=== PATIENT | female | born 1950 | race Caucasian/White ===

== ENCOUNTER 2016-10-23 08:51 | Day surgery (SDC) | payer MEDICARE ==
[2016-10-23] MEDS ORDERED: CEFAZOLIN 1 GM VIAL ONE (10:01)
[2016-10-23] MEDS ORDERED: FENTANYL 250 MCG/5 ML VIAL IV ONE (10:34)
[2016-10-23] MEDS ORDERED: hydrALAZINE 20 MG/ML VIAL IM ONE (10:34)
[2016-10-23] MEDS ORDERED: MIDAZOLAM 2 MG/2 ML VIAL IV ONE (10:34)
[2016-10-23] MEDS ORDERED: GLYCOPYRROLATE 1 MG VIAL IM ONE (10:34)
[2016-10-23] MEDS ORDERED: PROPOFOL 200 MG/20 ML VIAL IV ONE (10:34)
[2016-10-23] MEDS ORDERED: DEXAMETHASONE 4 MG/ML VIAL IV ONE (10:34)
[2016-10-23] MEDS ORDERED: ONDANSETRON HCL 4 MG/2 ML VIAL IV ONE (10:34)
[2016-10-23] MEDS ORDERED: NEOSTIGMINE 1 MG/1 ML (1:1000) INJ 10 ML MDV IM ONE (10:34)
[2016-10-23] MEDS ORDERED: ROCURONIUM 50 MG/5 ML VIAL IV ONE (10:34)
[2016-10-23] MEDS ORDERED: PHENYLEPHRINE 10 MG/ML VIAL IC ONE (10:34)
--- NOTE | 2016-10-23 11:17 | HIM.ANES ---
Anesthesia Evaluation & Plan Diagnoses: UNSP FRACTURE OF UPPER END OF RIGHT HUMERUS, INIT (10/23/16) Consented Procedure: OPEN REDUCTION INTERNAL FIXATION OF THE RIGHT PROXIMAL HUMERUS FRACTURE AND OTHER PROCEDURES INDICATED - Focused Review of Systems Now: No Cardiac History: Yes: Hx Hypertension (TAKES MEDICINE), Hx Cardiac Disorders, Hx Abnormal Cholesterol/Hyperlipidemia (TAKES PRAVASTATIN) No: Hx Angina, Hx Heart Attack, Hx Cardiac Catheterization, Hx Angioplasty, Hx Coronary Stent, Hx Pacemaker, Hx Internal Defibrillator, Hx Heart Murmur, Hx Cardia Arrhythmia, Hx Afib/Aflutter, Hx Abdominal Aortic Aneurysm, Hx Aneurysm, Hx Cardiomegaly, Hx Congestive Heart Failure, Hx Coronary Artery Bypass Graft, Hx Deep Vein Thrombosis, Hx of SVT HEENT: Yes: Cataracts, Macular Degeneration (LEFT EYE TAKES INJECTIONS), Temporomandibular Joint Disease (TMJ), Hx Vision Problem (WEARS GLASSES), Other HEENT Problems No: Hx Hearing Impairment, Cataract Removal, Glaucoma, Hx Dysphagia, Hx Ear Problem Hx Other HEENT Surgery: laser surgery left eye, tonsillectomy Hx Other HEENT Problems: seasonal allergies Respiratory: Yes: Hx Chronic Obstructive Pulmonary Disease (COPD) (PULMONARY FIBROSIS), Hx Snoring No: Hx Asthma, Hx Emphysema, Hx Sleep Apnea, Patient at risk for Sleep apnea (Based on RAMON tool), Hx Home O2, Hx BiPAP Dependent, Hx CPAP Dependent, Hx Recent Cold/Flu (SINUS), Hx Pneumonia Gastrointestinal: Yes: Hx Gastroesophageal Reflux Disease (REFLUX), Hx Gastrointestinal Disorders, Hx Chronic Constipation, Hx Colonoscopy (2016), Hx Endoscopy, Hx Esophageal Dilatation No: Hx Pancreatitis, Hx Obstructive Bowel, Hx Colitis, Hx Diverticulitis, Hx Diverticulosis, Hx Liver Disease, Hx Endoscopic Retrograde Cholangio Genitourinary: No: Hx Renal Disease, Hx Renal Failure, Hx Dialysis Neurological/Musculoskeletal: Yes: Hx Syncope (LAST EPISODE OVER 6 MONTHS AGO), Hx Migraine (ASSOCIATED WITH SINUS ISSUES), Hx Back Pain, Hx Numbness, Tingling , Weakness in Arms & Legs (NUMBNESS IN FINGERS AND TOES), Hx Neurological Disorders No: HX Cerebrovascular Accident, Hx Transient Ischemic Attacks (TIA), Hx Alzheimer's Disease, Hx Dementia, Hx Confusion, Hx Seizures, Hx Head Trauma Physiological: Yes Hx Anxiety, Yes Hx Depression (VENLAFAXINE), Yes Hx Mental/ Emotional Disorders, No Hx Bipolar Disorder Endocrine: No: Hx Diet Controlled Diabetes, Hx Non-Insulin Dependent Diabetes, Hx Insulin Dependent Diabetes, Hx Hyperthyroidism, Hx Hypothyroidism Blood/Autoimmune: Yes: Hx Anemia (4-5 MONTHS AGO) No: Hx Blood Transfusions, Hx AIDS, Hx Hepatitis (type) Smoking Status: Never smoker Hx Stress Test (date): No Hx Echocardiogram (date): Yes (2015) Hx Chest Xray (date): Yes (2015) Surgical History: No: Ablation, Carotid Endarterectomy, CABG, Bladder Tact, Ureter Stent, TURP , TURB, Back, Hip, Knee Other Surgical History: laser surgery left eye, tonsillectomy partial hysterectomy - Focused Physical Exam NPO since: 10/22/16 1900 Mallampati: Class II Thyromental Distance: Greater than 3 Neck: Limited Range of Motion Dental: Normal - no significant findings Cardiovascular/Chest: Normal (RRR no mumurs or rubs.) Respiratory: Lungs clear. negative: Rhonchi, Wheezing Any problems with anesthesia, including nausea and vomiting?: No Any relatives with a history of Malignant Hyperthermia?: No Does patient have a history of Malignant Hyperthermia?: No Beta Marilyn given (if appropriate): No Does the patient have a history of Motion Sickness-: No Other: Problem List Problem Status Onset Closed fracture of right proximal humerus Acute Allergies Allergy/AdvReac Type Severity Reaction Status Date / Time aspirin Allergy Unknown Verified 10/23/16 09:12 Home Medications Medication Instructions Recorded Last Taken Type Bisoprolol Fumarate 5 mg PO DAILY 06/04/16 10/22/16 08:00 History Calcium Carbonate/Vitamin D3 1 each PO .LUNCH AND SUPPER 06/04/16 10/22/16 17: 00 History [Calcium 600 + Vit D Softgel] Famotidine [Pepcid] 20 mg PO HS 06/04/16 10/22/16 19:00 History Guar Gum [Fiber] 1 gm PO DAILY 06/04/16 10/22/16 08:00 History Multivitamin [Multivitamins] 1 cap PO DAILY 06/04/16 10/22/16 08:00 History Pravastatin [Pravachol] 40 mg PO HS 06/04/16 10/22/16 19:00 History Trazodone HCl [Desyrel] 50 - 100 mg PO QHS 06/04/16 10/22/16 19:00 History Triamterene/Hydrochlorothiazid 1 cap PO DAILY 06/04/16 10/22/16 08:00 History [Triamterene-Hctz 37.5-25 mg Cp] Polyvinyl Alcohol/Povidone/Pf 1 drop OU Q2H PRN 06/05/16 10/22/16 History [Refresh Eye Drops] Acetaminophen [Tylenol 8 650 mg PO QHS PRN 10/11/16 Unknown History Hour/Tylenol Arthritis] Ascorbic Acid [Vitamin C] 1,000 mg PO DAILY 10/11/16 1 Week Ago History Dextromethorphan HBr/Chlor-Mal 2 tab PO QHS 10/11/16 10/22/16 19:00 History [Coricidin Hbp Cough/Cold Tab (30mg/4mg)] Echinacea 400 mg PO DAILY 10/11/16 1 Week Ago History Levothyroxine Sodium 50 mcg PO DAILY 10/11/16 10/22/16 08:00 History Oxycodone Immediate Release 5 mg PO Q6H PRN #30 tab 10/11/16 10/23/16 06:00 Rx [Oxy-Ir] Tramadol HCl [Ultram] 50 - 100 mg PO BID PRN 10/11/16 10/11/16 History Lansoprazole [Prevacid] 30 mg PO QAM 10/20/16 10/22/16 08:00 History Venlafaxine HCl [Effexor Xr] 75 mg PO DAILY 10/20/16 10/22/16 08:00 History Venlafaxine HCl [Effexor Xr] 150 mg PO DAILY 10/20/16 10/22/16 08:00 History Height and Weight Patient's height 5 ft 3 in Patient's weight 62.596 kg BMI 25.2 Vital Signs Temperature 99.1 F 10/23/16 09:18 Pulse Rate 99 10/23/16 09:18 Respiratory Rate 18 10/23/16 09:18 Blood Pressure 138/71 10/23/16 09:18 Pulse Oxygen Saturation 96 10/23/16 09:18 METS - Level of Activity: Eating, Dressing, walking around house, dishwashing - Anesthetic Plan Anesthesia Type: General, Post-Op Block- for Pain Control ASA Class: 3 -: I have examined this patient and reviewed the medical record. The patient has been assessed prior to anesthesia. Risks and benefits of anesthesia and anesthetic technique options have been discussed and all questions answered. The patient accepts the risk and desires me to proceed with the planned anesthetic.
[2016-10-23] MEDS ORDERED: ONDANSETRON HCL 4 MG/2 ML VIAL IV PRN ×2 (11:21→14:35)
[2016-10-23] MEDS ORDERED: hydrALAZINE 20 MG/ML VIAL IV PRN (11:21)
[2016-10-23] MEDS ORDERED: LABETALOL 20 MG/4 ML SYRINGE IV PRN (11:21)
[2016-10-23] MEDS ORDERED: ONDANSETRON HCL 4 MG ODT TAB PO PRN (11:21)
[2016-10-23] MEDS ORDERED: HYDROmorphone 1 MG INJECTION IV PRN ×2 (11:21)
[2016-10-23] MEDS ORDERED: MEPERIDINE 25 MG/ML TUBEX IV PRN (11:21)
[2016-10-23] MEDS ORDERED: FENTANYL 100 MCG/2 ML VIAL IV PRN ×2 (11:21)
[2016-10-23] MEDS ORDERED: FENTANYL 100 MCG/2 ML VIAL ONE (11:25)
[2016-10-23] MEDS ORDERED: MIDAZOLAM 2 MG/2 ML VIAL ONE (11:25)
[2016-10-23] MEDS ORDERED: ROPIVACAINE HCL 20 ML ONE (11:27)
[2016-10-23] MEDS ORDERED: LIDOCAINE 1% 5 ML (METHYLPARABEN FREE) ONE (11:27)
--- NOTE | 2016-10-23 12:07 | HIM.ANESP ---
Procedure Note DATE OF PROCEDURE: 10/23/16 PREOPERATIVE DIAGNOSIS: Post-operative Pain Control. POSTOPERATIVE DIAGNOSIS: Same PROCEDURE: Brachial Plexus Block at interscalene PERFORMING PROVIDER: Barbra Hodges MD TIME OUT: 1149 BLOCK START Time: 1149 BLOCK STOP Time: 1154 MEDICATIONS: Ropivacaine 0.2% 20 ml EPINEPHRINE 1:200,000 SEDATION: Fentanyl 150 mcg; versed 2 mg NEEDLE: Stimuplex 22G 50MM STERILE BARRIERS: Cap, mask, sterile gloves. COMPLICATIONS: None. BLOOD LOSS: 0 cubic centimeters. PROCEDURE FINDINGS AND TECHNIQUE:At the request of the Operative Surgeon and patient, a Brachial Plexus Block was performed for post-operative pain relief. Risk, benefits and alternatives of the procedure were explained. Informed consent was obtained and surgical site confirmed with patient and chart. Time out was performed. Pulse oximetry, EKG and BP monitoring were established.. The Right neck was prepped and draped in a sterile manner. Skin anesthesia was obtained with 1% Xylocaine infiltration. The Brachial plexus was visualized by ultrasound and an image is appended. (see chart) An Stimuplex needle was inserted in the proximity of the nerves. Under direct visualization local anesthetic was injected in incremental volumes of 5 ml with negative aspirations throughout. There was no pain on injection. A peripheral nerve stimulator was used to assist in localizing the brachial plexus. Appropriate paresthesia and/or muscle response was noted at 0.5mA current. No muscle response noted at 2mA or less. Patient tolerated the procedure well without complications and the case was continued under general anesthesia as was the request of the patient.
[2016-10-23] MEDS ORDERED: TRANEXAMIC ACID 1,000 MG in NS 100 ML IV ONE (13:00)
[2016-10-23] MEDS ORDERED: DIPHENHYDRAMINE 50 MG/ML VIAL IV PRN (14:35)
[2016-10-23] MEDS ORDERED: PROMETHAZINE 25 MG/ML VIAL IV PRN (14:35)
[2016-10-23] MEDS ORDERED: DIPHENHYDRAMINE 25 MG CAP PO PRN (14:35)
[2016-10-23] MEDS ORDERED: Aluminum;Magnesium;Simethicone 30 ML UDC PO PRN (14:35)
[2016-10-23] MEDS ORDERED: MAGNESIUM HYDROXIDE 30 ML BOTTLE PO PRN (14:35)
[2016-10-23] MEDS ORDERED: ACETAMINOPHEN 325 MG/TAB TABLET PO PRN (14:35)
--- NOTE | 2016-10-23 14:52 | SC.ANESPOS ---
Post-Anesthesia Note LOC: Fully Awake Post-Anesthesia Assessment: Awake, Returned to Baseline, Hemodynamically Stable , Pain Control Adequate Phase I & II Recovery Complete: Yes Apparent Anesthesia Complication: No : N - Vital Signs Blood Pressure: 119/56 Pulse: 104 Resp Rate: 18 O2 Sat: 97 Temp: 97.7 F
--- NOTE | 2016-10-23 14:53 | DIRPT ---
CLINICAL DATA: Right proximal humeral fracture operative reduction and internal fixation. EXAM: PORTABLE RIGHT SHOULDER - 2+ VIEW COMPARISON: 10/11/2016 FINDINGS: Proximal humeral locking plate fixator observed with expected configuration of screws in the humeral head and proximal shaft, traversing the previously displaced surgical neck fracture, with restorationist of near-anatomic alignment without a complicating feature visualized. Airspace opacity at the right lung base and peripherally in the right lung, favoring atelectasis. IMPRESSION: 1. Proximal humeral locking plate and screw fixator is in place without complicating feature, with restorationist of near-anatomic alignment and positioning at the site of the surgical neck fracture. 2. Suspected atelectasis at the right lung base. Electronically Signed By: Mauro Montez M.D. On: 10/23/2016 14:51
[2016-10-23] MEDS ORDERED: NALOXONE 0.4 MG/ML AMPULE IV SCH ×2 (15:00)
[2016-10-23] MEDS ORDERED: Vaccine Screening Complete SCH (15:00)
[2016-10-23 15:15] VITALS: BMI 25.4
[2016-10-23] MEDS: NS 1,000 ML IV SCH ×2 (15:31→21:40)
[2016-10-23] MEDS ORDERED: TRAMADOL HCL 50 MG TAB PO PRN (16:13)
[2016-10-23] MEDS: PANTOPRAZOLE 40 MG TAB PO SCH (17:24)
[2016-10-23] MEDS: SODIUM CHLORIDE 0.9% 3 ML FLUSH FLUSH SCH ×2 (17:24)
[2016-10-23] MEDS: ACETAMINOPHEN 325 MG/TAB TABLET PO SCH (17:24)
[2016-10-23] MEDS: HYDROmorphone 1 MG INJECTION IV PRN ×2 (17:28→21:40)
[2016-10-23] MEDS ORDERED: CALCIUM CARBONATE + VITAMIN D 500 MG TAB PO SCH (18:00)
[2016-10-23] MEDS: Cefazolin 2gm/50 ml D5W 2 GM/50 ML RTU IV SCH (18:16)
[2016-10-23] MEDS: OXYCODONE HCL 5 MG TABLET PO PRN (20:14)
[2016-10-23] MEDS ORDERED: TRAZODONE 100 MG TAB PO SCH (21:00)
[2016-10-23] MEDS ORDERED: Docusate Sodium 100 MG CAP PO SCH (21:00)
[2016-10-23] MEDS ORDERED: TRAZODONE 50 MG TAB PO SCH (21:00)
[2016-10-23] MEDS ORDERED: PRAVASTATIN 40 MG TABLET PO SCH (21:00)
[2016-10-24] MEDS: OXYCODONE HCL 5 MG TABLET PO PRN ×2 (00:38→05:55)
[2016-10-24] MEDS: Cefazolin 2gm/50 ml D5W 2 GM/50 ML RTU IV SCH ×2 (00:38→09:13)
[2016-10-24] MEDS: ACETAMINOPHEN 325 MG/TAB TABLET PO SCH ×2 (00:38→05:55)
[2016-10-24] MEDS: HYDROmorphone 1 MG INJECTION IV PRN (02:28)
[2016-10-24] MEDS: SODIUM CHLORIDE 0.9% 3 ML FLUSH FLUSH SCH ×2 (05:49→05:50)
[2016-10-24] MEDS: PANTOPRAZOLE 40 MG TAB PO SCH (05:56)
[2016-10-24 06:29] VITALS: BP 131/68; PULSE 116; TEMP 98.3
--- NOTE | 2016-10-24 06:45 | PCM.ORTHBL ---
- Subjective Hospital Day #: 2 Post Op Day: 1 (s/p R proximal humerus ORIF) Daily Assessment - Patient: Reports: No new complaints, Awake Alert Oriented x4 , Still having pain, Tolerating Regular Diet, Afebrile, Ambulating with Physical Therapist - Objective / Physical Exam Vital Signs: Temperature: 98.3 F (10/24/16 06:00) HR: 116 (10/24/16 06:00)RR: 18 (10/24/16 06 :00) BP: 131/68 (10/24/16 06:00)Pulse Ox: 96 (10/24/16 06:00) General: Alert, Oriented x3, Cooperative, No acute distress Musculoskeletal / Extremities: 2 plus Radial Pulse, Dressing Clean/Dry/Intact Neurological: Other (SITLT RUE) Skin: Warm,Dry and Intact, Other (pre op ecchymosis along inner upper right arm) - Assessment and Plan (1) Closed fracture of right proximal humerus Acute S42.201A - UNSP FRACTURE OF UPPER END OF RIGHT HUMERUS, INIT Present on Admission: Yes subsequent encounter displaced Comment/Plan: POD #1 s/p Right proximal humerus ORIF doing well. NWB RUE with sling. Pain control with oral meds as ordered and rx given in clinic. Follow up with Dr. garcia as scheduled in clinic. D/C home today. Ice R shoulder.
--- NOTE | 2016-10-24 06:53 | PCM.DCS92 ---
Discharge Disposition: Home Discharge Condition: Stable Fuctional Discharge Status: Independent, Other (sling RUE) Physician Follow up/Referrals: Dick Rodrigues MD [Staff Physician] - Two Weeks New Prescriptions: Docusate Sodium [Colace] 200 mg PO HS #30 capsule Diet at Discharge: As Tolerated Activity: Other (see below) (Nonweightbearing right upper extremity with strict shoulder immobilization. Full elbow, wrist, and hand range of motion immediately.) Call Office For: Worsening Symptoms, Wound is Draining Pus, Fever over 101 F, Fever over 100.5, Wound is Painful, Wound is Red, Weight Gain (see below), Pain Uncontrolled By Meds, Other (See Details) Discontinue use of:: Alcohol, All Illegal Substances, All Types of Tobacco - DC Summary Notes Hospital Course Note:: Discharge summary on patient named OLEGARIO CASEY admitted to [facility] on 10/23/16 by Dick Rodrigues MD. Date of discharge is October 24, 2016. HPI: 66-year-old [id number] female status post mechanical fall sustaining a 2 part significantly displaced proximal humerus fracture. Patient went on to be evaluated in the clinical setting where she met indications for surgical intervention. Hospital course: Patient was taken to the operating room on October 23, 2016 for open reduction internal fixation of right proximal humerus fracture. Postoperative day 1 patient's pain was controlled with oral pain medication and tolerating regular diet. Patient having normal bowel movements and able to urinate without difficulty. Patient was prepared for discharge on postoperative day 1. Operations-procedures: ORIF of right proximal humerus fracture-October 23, 2016 Disposition: Patient will be discharged home in the care of her . Strict right upper extremity nonweightbearing and immobilization with immediate full elbow, wrist, and hand range of motion. Keep dressing clean, dry, and intact. Prescription for oxycodone 5 mg 1 tab p.o. q.6 hours p.r.n. pain provided. Colace 100 mg p.o. b.i.d. for constipation. Encouraged to drink 68 glasses of water daily. Return to clinic postop day 10 for staple removal and wound check. Wound Care Surgical Site: Yes Ability To Perform Care (if applicable): Yes Dressing/Site Care (if applicable): Keep dressing clean, dry, and intact. Medical Equipment (Order must still be written on paper): Other (Sling right upper extremity) Medication Instructions: Take Stool Softener, Rx on Chart Continue Ice Packs/Ice Machine to Operative Area: Yes Current Dressing: Tegaderm, Other Dressing Care: Keep Wound Clean & Dry - Consults/Home Health Outpatient Consults: None - Physical Exam Vital Signs: Initial Vitals Temperature 99.1 F 10/23/16 09:18 Pulse Rate 99 10/23/16 09:18 Respiratory Rate 18 10/23/16 09:18 Blood Pressure 138/71 10/23/16 09:18 Pulse Oxygen Saturation 96 10/23/16 09:18
[2016-10-24] MEDS ORDERED: ASCORBIC ACID 500 MG TAB PO SCH (08:00)
[2016-10-24] MEDS ORDERED: TRIAMTERENE HCTZ PO SCH (09:00)
[2016-10-24] MEDS ORDERED: BISOPROLOL FUMARATE 5 MG TAB PO SCH (09:00)
[2016-10-24] MEDS ORDERED: LEVOTHYROXINE 50 MCG (0.05 MG) TAB PO SCH (09:00)
[2016-10-24] MEDS ORDERED: VENLAFAXINE XR 75 MG CAP PO SCH (09:00)
[2016-10-24] MEDS ORDERED: VENLAFAXINE XR 150 MG CAP PO SCH (09:00)
[2016-10-24] MEDS ORDERED: TRIAMTERENE PO SCH (09:00)
[2016-10-24] MEDS ORDERED: HCTZ 25 MG PO SCH (09:00)
[2016-10-24] MEDS ORDERED: VITAMINS, MULTIPLE CAP PO SCH (12:00)
--- NOTE | 2016-10-25 13:06 | HIMOPRPT ---
PREOPERATIVE DIAGNOSIS: Right 2 part proximal humerus fracture. POSTOPERATIVE DIAGNOSIS: Same. PROCEDURE: Open reduction internal fixation of right proximal humerus fracture with biceps tenodesis. FINDINGS: Osteoporosis with significant impaction and shortening of the greater tuberosity with lateral displacement of the shaft. SPECIMENS REMOVED: None. ESTIMATED BLOOD LOSS: 100 mL. ANESTHESIA: General. COMPLICATIONS: None. SURGEON: Dick Rodrigues M.D. JAVA APPLICATION ENGINEER: WESLEY Aguilar TOURNIQUET TIME: IMPLANTS: Include a metal Striker 3 hole proximal humerus plate including 7 proximal locking screws with 3 distal nonlocking screws. SIGNIFICANT HISTORY, INDICATIONS, AND CONSENT: Dia is a 66-year-old right- hand-dominant female status post mechanical fall sustaining a highly displaced right proximal humerus fracture. Risks, benefits, and alternatives were discussed at length. No guarantees were stated or implied. The patient wished to proceed with surgical intervention to potentially improve function of the right shoulder and decrease likelihood of malunion and nonunion. OPERATION IN DETAIL: Patient was seen in the preop holding area where the right shoulder was signed and consent was reviewed. The patient was then taken to the operating room and placed in the supine position on the operating table. Anesthesia placed monitoring devices and performed general anesthesia. The patient was then carefully positioned and 30 beach chair position. We carefully padded all bony prominences as well as gently flexed the hips and knees appropriately. Cervical spine was paid particular attention too. Next the right upper extremity was sterilely prepped and draped in the usual orthopedic fashion. A time-out was performed and consensus was reached amongst the participants in the OR suite after prophylactic antibiotics were given. Next A standard deltopectoral approach to the proximal humerus was made with skin incision just lateral to the coracoid process proximally and distally towards the deltoid insertion. Sharp dissection was made through skin the deltopectoral interval was identified and using blunt dissection the subdeltoid space was bluntly dissected as was the subpectoral space. The deltoid retractor was placed and with internal rotation our fracture was identified. The fracture was cleaned of significant soft tissue and the fracture hematoma which was in early stages of fracture healing. After the fracture was clearly identified significant displacement was noted in with lateralization of the humeral shaft. Anthony anterior angulation. Significant impaction was noted in the metaphysis of the proximal humerus was present. 2. FiberWire suture was then placed in the supraspinatus and subscapularis for reduction methods. Using a Mcdaniel elevator and [place] we then freed the fracture from its impacted state and with the fracture in near anatomic alignment with the varus malalignment corrected a pin was provisionally placed through the glenohumeral joint. Radiographic confirmation of acceptable reduction was then found to be present on AP view. A 3 hole plate was then placed and pinned provisionally. Once our height was corrected fracture was reduced and fixed through the oblong hole in the humerus shaft bringing the plate to the humerus shaft nicely. We then placed several locking screws proximally under radiographic visualization. Acceptable alignment was maintained and provisional fixation removed. We then placed a total of 7 proximal locking screws in the humeral head to maintain the restored medial calcar. The humerus shaft was fixed with a total of 3 nonlocking screws. All proximal screws were placed under radiographic visualization to avoid intra- articular placement. Once the fractures was stabilized and confirmed to be in an acceptable position live fluoro was used to identify the no intra-articular placement of our screws with acceptable fracture reduction. Using a 2. FiberWire biceps tendon was tenotomized at the supraglenoid tubercle and tenodesed at the level of the superior border of pectoralis major. The remainder of the biceps tendon was removed sharply. The incision site was then thoroughly irrigated deltopectoral approach was closed using 0-Vicryl suture in a loose fashion. 2-0 Monocryl was used for subcutaneous closure and son for skin tears incision just misplaced patient was arousable anesthesia and taken to the post anesthesia care unit in stable condition. PLAN: The patient will be blocked in PACU and if pain controlled allowed to be discharged home. Otherwise, she will be admitted for 23 hour stay. We have provided oxycodone p.r.n. pain. Patient began very gentle passive range of motion to include pendulum exercises immediately. Patient has been placed in an abduction pillow sling. <Electronically signed by Dick Rodrigues MD> 10/23/[id number] [facility]
== END 2016-10-24 10:35 | disposition home or self-care (01) ==
LOC: SDC 08:51 → MPS3 14:41
PROVIDERS: ADMIT Orthopaedic Surgery; ATTEND Orthopaedic Surgery
PROC: 0PSC04Z Reposition Right Humeral Head with Internal Fixation Device, Open Approach (ICD-10-PCS; 2016-10-23)
PROC: 0LS30ZZ Reposition Right Upper Arm Tendon, Open Approach (ICD-10-PCS; principal; 2016-10-23 11:00)
DX: S42.201A Unspecified fracture of upper end of right humerus, initial encounter for closed fracture (principal); W19.XXXA Unspecified fall, initial encounter; M81.0 Age-related osteoporosis without current pathological fracture; E78.5 Hyperlipidemia, unspecified; I10 Essential (primary) hypertension; E07.9 Disorder of thyroid, unspecified; Z79.899 Other long term (current) drug therapy; J44.9 Chronic obstructive pulmonary disease, unspecified; K21.9 Gastro-esophageal reflux disease without esophagitis; J84.10 Pulmonary fibrosis, unspecified
CPT/HCPCS: 23615; 24340; 51798; 73030; 87641; 97110; 97162; A9270; G0378; J0171; J0360; J0690; J1100; J1170; J2370; J2405; J2550; J2710; J2795; J3010; J3490; J7030; J2250